=== PATIENT | female | born 1970 | race Caucasian/White ===

== ENCOUNTER 2023-04-08 06:44 | Outpatient (OUT) | payer BC, SELFPAY ==
--- NOTE | 2023-04-08 06:47 | MM_ITS ---
Patient: DASHA CROWLEY Exam Date: 04/08/2023 : 1970 Gender:F Ordering : DR JIM EDWARDS Admission #: [id number] Family : DR Shayna Multani M.D. Order #: [id number] CLICK HERE TO VIEW EXAM RADIOLOGY REPORT PROCEDURE: MM TOMOSYNTHESIS SCREENING BI COMPARISON: MG MAMM SCREEN LENNY W CAD, 12/21/2019. MG MAMM SCREEN 3D LENNY CAD, 09/19/2021. INDICATIONS: Screening mammogram Z12.31 Calculator Name NCI Breast Cancer Risk Assessment Tool 5 Year Breast Cancer Risk 1.40% Lifetime Breast Cancer Risk 11.00% Personal Breast Cancer No Personal Ovarian Cancer No Treatments None Family Cancers None LOCATION: [facility] BREAST COMPOSITION: Heterogeneously dense,which may obscure small masses. FINDINGS: DIAGNOSTIC CATEGORY 1--NEGATIVE. NO CHANGE FROM COMPARISON ASSESSMENT. Scattered benign-appearing calcifications are present. RIGHT BREAST: No significant suspicious finding. LEFT BREAST: No significant suspicious finding. Linear scar marker RECOMMENDATIONS: ROUTINE MAMMOGRAM AND CLINICAL EVALUATION IN 12 MONTHS. PLEASE NOTE: A NORMAL MAMMOGRAM DOES NOT EXCLUDE THE POSSIBILITY OF BREAST CANCER. A CLINICALLY SUSPICIOUS PALPABLE LUMP SHOULD BE BIOPSIED. Dictated by: Bob Wynne MD on 04/08/2023 at 08:37 Approved by: Bob Wynne MD on 04/08/2023 at 08:41
== END 2023-04-08 06:45 | disposition home or self-care (01) ==
LOC: MAMMO 06:44
PROVIDERS: PCP Family Medicine; Visit Provider Obstetrics & Gynecology
DX: Z12.31 Encounter for screening mammogram for malignant neoplasm of breast (principal)
CPT/HCPCS: 77063; 77067

== ENCOUNTER 2024-06-08 06:56 | Outpatient (OUT) | payer BC, SELFPAY ==
--- NOTE | 2024-06-08 06:58 | MM_ITS ---
Patient Name: DASHA CROWLEY MR#: [id number] : 1970 Exam Date: 06/08/2024 Ordering Doctor: DR PATTIE EDWARDS D.O. RADIOLOGY REPORT PROCEDURE: MM TOMOSYNTHESIS SCREENING BI COMPARISON: MM TOMOSYNTHESIS SCREENING BI, 04/08/2023. MG MAMM SCREEN 3D LENNY CAD, 09/19/2021. INDICATIONS: Screening Calculator Name NCI Breast Cancer Risk Assessment Tool 5 Year Breast Cancer Risk 1.50% Lifetime Breast Cancer Risk 10.80% Personal Breast Cancer No Personal Ovarian Cancer No Treatments None Family Cancers None LOCATION: [facility] BREAST COMPOSITION: The breasts are heterogeneously dense,which may obscure small masses. FINDINGS: DIAGNOSTIC CATEGORY 2--BENIGN FINDING. NO CHANGE FROM COMPARISON. Scattered benign-appearing calcifications are present. Scattered benign-appearing lymph nodes are present. RIGHT BREAST: No significant suspicious finding. LEFT BREAST: No significant suspicious finding. RECOMMENDATIONS: ROUTINE MAMMOGRAM AND CLINICAL EVALUATION IN 12 MONTHS. PLEASE NOTE: A NORMAL MAMMOGRAM DOES NOT EXCLUDE THE POSSIBILITY OF BREAST CANCER. A CLINICALLY SUSPICIOUS PALPABLE LUMP SHOULD BE BIOPSIED. Dictated by: Bob Wynne MD on 06/08/2024 at 12:32 Approved by: Bob Wynne MD on 06/08/2024 at 12:33
== END 2024-06-08 06:57 | disposition home or self-care (01) ==
LOC: MAMMO 06:56
PROVIDERS: PCP Family Medicine; Visit Provider Family Medicine
DX: Z12.31 Encounter for screening mammogram for malignant neoplasm of breast (principal)
CPT/HCPCS: 77063; 77067